=== PATIENT | female | born 1960 | race Caucasian/White ===

== ENCOUNTER 2018-03-18 06:12 | Day surgery (SDC) | payer MEDICAID ==
[2018-03-18] MEDS ORDERED: MULT1TAB74 PO (06:30)
[2018-03-18] MEDS ORDERED: PANT-47 PO (06:30)
[2018-03-18] MEDS ORDERED: POLY17PO10 PO (06:30)
[2018-03-18] MEDS ORDERED: ASPI81TA52 PO (06:30)
[2018-03-18] MEDS ORDERED: ATOR80TA PO (06:30)
[2018-03-18] MEDS ORDERED: CLOP75TA15 PO (06:30)
[2018-03-18] MEDS ORDERED: ONDA4TAB6 PO (06:30)
[2018-03-18] MEDS ORDERED: LEVO25TA2 PO (06:30)
[2018-03-18] MEDS ORDERED: METO25TA6 PO (06:30)
[2018-03-18 06:35] VITALS: BP 110/70
[2018-03-18] MEDS ORDERED: normal saline 1000ml 1,000 ML IV SCH (06:55)
[2018-03-18 07:05] LABS: BASOPHILS % (AUTO) 0.1 % (0-1); EOSINOPHILS # (AUTO) 0.2 X10'3 (0-0.9); EOSINOPHILS % (AUTO) 3.9 % (0-6); HEMATOCRIT 30.6 % (35.0-45.0); HEMOGLOBIN 10.1 g/dl (12.0-16.0); LYMPHOCYTES # (AUTO) 0.5 X10'3 (1.1-4.8); LYMPHOCYTES % (AUTO) 7.9 % (21-51); MEAN CORPUSCULAR HEMOGLOBIN 27.8 PG (27.0-31.0); MEAN CORPUSCULAR HGB CONC 32.9 % (33.0-36.5); MEAN CORPUSCULAR VOLUME 84.4 FL (78-98); MEAN PLATELET VOLUME 7.3 FL (7.4-10.4); MONOCYTES # (AUTO) 0.5 X10'3 (0-0.9); MONOCYTES % (AUTO) 8.6 % (2-12); NEUTROPHILS # (AUTO) 5.1 X10'3 (1.8-7.7); NEUTROPHILS % (AUTO) 79.5 % (42-75); PLATELET COUNT 419 X10'3 (140-440); RED BLOOD COUNT 3.62 X10'6 (4.20-5.60); RED CELL DISTRIBUTION WIDTH 15.3 % (11.5-14.5); WHITE BLOOD COUNT 6.4 X10'3 (4.5-11.0)
[2018-03-18] MEDS ORDERED: LIDOcaine 1%/PF 5ML 10 MG/ML VIAL ONE (08:44)
[2018-03-18] MEDS ORDERED: fentaNYL/PF 50MCG/1 ML 2ML syringe ONE (08:44)
[2018-03-18] MEDS ORDERED: midazolam 2 mg/2 ml injection ONE (08:44)
[2018-03-18] MEDS ORDERED: fentaNYL/PF 50MCG/1 ML 2ML syringe IV PRN (08:55)
[2018-03-18] MEDS ORDERED: heparin sodium, porcine/PF 100unit/ml 5ML syringe ICATH ONE (08:55)
[2018-03-18] MEDS ORDERED: heparin sodium, porcine/PF 100unit/ml 5ML syringe ONE (08:55)
[2018-03-18] MEDS ORDERED: ceFAZolin 1GM/D5W- ADD-VANTAGE 50 ML IV ONE ×2 (08:55)
[2018-03-18] MEDS ORDERED: midazolam 2 mg/2 ml injection IV PRN (08:55)
[2018-03-18 09:26] LABS: ALBUMIN 3.3 G/DL (3.4-5.0); ANION GAP 13 (8-16); BLOOD UREA NITROGEN 15 MG/DL (7-18); BUN/CREATININE RATIO 18.3 (6.6-38.0); CALCIUM 8.9 MG/DL (8.5-10.1); CHLORIDE 108 MMOL/L (99-107); CREATININE 0.82 MG/DL (0.40-0.90); GLUCOSE 98 MG/DL (70-104); POTASSIUM 3.6 MMOL/L (3.5-5.1); SODIUM 143 MMOL/L (135-145); TOTAL CARBON DIOXIDE 22.1 MMOL/L (24-32); eGFR 71 ML/MIN
[2018-03-18 09:43] VITALS: BP 119/64
[2018-03-18 09:55] VITALS: BP 103/72
== END 2018-03-18 10:05 | disposition home or self-care (01) ==
LOC: SSTAY O 06:12
PROVIDERS: ATTEND Radiology Vascular & Interventional Radiology
DX: C20 Malignant neoplasm of rectum (principal); E78.5 Hyperlipidemia, unspecified; E03.9 Hypothyroidism, unspecified; I10 Essential (primary) hypertension; K21.9 Gastro-esophageal reflux disease without esophagitis; I25.10 Atherosclerotic heart disease of native coronary artery without angina pectoris; Z95.5 Presence of coronary angioplasty implant and graft; Z90.49 Acquired absence of other specified parts of digestive tract; Z79.82 Long term (current) use of aspirin; Z79.01 Long term (current) use of anticoagulants; Z87.891 Personal history of nicotine dependence; Z93.2 Ileostomy status; Z98.41 Cataract extraction status, right eye; Z98.42 Cataract extraction status, left eye; Z98.890 Other specified postprocedural states; Z79.899 Other long term (current) drug therapy; Z82.49 Family history of ischemic heart disease and other diseases of the circulatory system
CPT/HCPCS: 36415; 36561; 76937; 77001; 80048; 85025; 99152; 99153; J0690; J1642; J2001; J2250; J3010; J7030; C1788; C1894